=== PATIENT | male | born 1935 ===

== ENCOUNTER 2018-11-02 08:51 | Emergency (ER) | payer MEDICARE, MEDICAID ==
[2018-11-02 08:57] VITALS: BMI 32.1
[2018-11-02 08:58] VITALS: O2SAT 100
--- NOTE | 2018-11-02 09:19 | ED PDOC ---
Upper Extremity Pain/Injury Time Seen by Provider: 11/02/18 09:05 Chief Complaint (Provider): Upper Extremity Pain/Injury History Per: Patient History/Exam Limitations: no limitations Onset/Duration Of Symptoms: Days (x3) Current Symptoms Are (Timing): Still Present Additional Complaint(s): 83 y/o male with a PMHx of HTN presents to the ED for evaluation of upper extremity pain, onset three days ago. Patient reports of experiencing redness, swelling and cracking of the digits to both hands for the past three days. Patient notes of difficulty extending and flexing fingers. Otherwise, patient denies injury and fever. PMD: Gagandeep Mace Past Medical History Reviewed: Historical Data, Nursing Documentation, Vital Signs Vital Signs: Last Vital Signs Temp 97.7 F 11/02/18 08:57 Pulse 108 H 11/02/18 08:57 Resp 20 11/02/18 08:57 BP 143/85 11/02/18 08:57 Pulse Ox 100 11/02/18 08:57 - Medical History PMH: HTN - Surgical History Surgical History: No Surg Hx - Family History Family History: States: Unknown Family Hx - Social History Current smoker - smoking cessation education provided: No Alcohol: None Drugs: Denies - Home Medications Home Medications: Ambulatory Orders Medication Instructions Recorded Acetaminophen with Codeine 1 tab PO Q6H PRN #10 tab 02/15/15 [Tylenol with Codeine No. 3 300 mg-30 mg] Unknown 02/15/15 Naproxen [Naprosyn] 500 mg PO Q12H #20 tab 11/02/18 - Allergies Allergies/Adverse Reactions: Allergies Allergy/AdvReac Type Severity Reaction Status Date / Time No Known Allergies Allergy Verified 07/05/16 14:01 Review of Systems ROS Statement: Except As Marked, All Systems Reviewed And Found Negative Constitutional: Negative for: Fever Musculoskeletal: Positive for: Hand Pain Physical Exam - Reviewed Nursing Documentation Reviewed: Yes Vital Signs Reviewed: Yes - Physical Exam Appears: Positive for: No Acute Distress Extremity: Positive for: Swelling, Other (erythema with cracking of dorsal surface of the DIP joints of the 2nd through 5th digits. ). Negative for: N ormal ROM (ROM limited by swelling), Deformity - Laboratory Results Result Diagrams: 11/02/18 09:37 11/02/18 09:37 - ECG O2 Sat by Pulse Oximetry: 100 (RA) Pulse Ox Interpretation: Normal Medical Decision Making Medical Decision Making: Time: 910 A/P: Will obtain Sedimentation rate as this appears to be collagen vascular disease -- Will obtain XRs and refer to rheumatology -- CMP -- CBC with Differentials -- Erythrocyte Sedimentation Rate -- Hand 3 Views BI XR -- Cassie IFA Scr w/REFL Titer -- Rheumatoid Factor Scribe Attestation: Documented by Nathalie Epps, acting as a scribe Brad Jessica MD. Provider Scribe Attestation: All medical record entries made by the Scribe were at my direction and personally dictated by me. I have reviewed the chart and agree that the record accurately reflects my personal performance of the history, physical exam, medical decision making, and the department course for this patient. I have also personally directed, reviewed, and agree with the discharge instructions and disposition. Disposition - Clinical Impression Clinical Impression: Arthritis, Collagen vascular disease - Patient ED Disposition Is Patient to be Admitted: No - Disposition Referrals: Jose Hair MD [Staff Provider] - Disposition: Routine/Home Disposition Time: 10:29 Condition: FAIR Prescriptions: Naproxen [Naprosyn] 500 mg PO Q12H #20 tab Instructions: Osteoarthritis, Rheumatoid Arthritis Print Language: AMHARIC
[2018-11-02 09:54] LABS: BASO % 0.5 % (0.0-2.0); EOS # 0.1 K/uL (0.0-0.7); EOS % 1.7 % (0.0-4.0); HEMOGLOBIN 13.3 g/dL (12.0-18.0); LYMPH # 1.8 K/uL (1.0-4.3); LYMPH % 44.4 % (20.0-40.0); MEAN CELL VOLUME 90.3 fl (80.0-94.0); MEAN CORPUSCULAR HGB CONC 33.2 g/dL (33.0-37.0); MEAN PLATELET VOLUME 8.6 fl (7.2-11.7); MONO # 0.4 K/uL (0.0-0.8); MONO % 9.9 % (0.0-10.0); NEUT # 1.8 K/uL (1.8-7.0); NEUT % 43.5 % (50.0-75.0); NRBC % 0.4 % (0.0-0.0); RBC 4.43 Mil/uL (4.40-5.90); RED CELL DISTRIBUTION WIDTH 12.8 % (11.5-14.5); WHITE BLOOD COUNT 4.1 K/uL (4.8-10.8)
[2018-11-02 10:04] LABS: ALB/GLOB RATIO 1.2 (1.0-2.1); ALBUMIN 4.2 g/dL (3.5-5.0); ALT/SGPT 28 U/L (21-72); AST/SGOT 30 U/L (17-59); BLOOD UREA NITROGEN 20 mg/dl (9-20); CALCIUM 9.6 mg/dL (8.4-10.2); GFR NON-AFRICAN AMERICAN > 60
--- NOTE | 2018-11-02 10:36 | RAD ---
PROCEDURE: Bilateral hand radiographs. HISTORY: swelling COMPARISON: None. FINDINGS: BONES: Right Hand: Three views of the right hand and left hand were performed. No fracture is seen. No lytic process is noted. Mild degenerative changes are identified. No erosions are seen. Visualized carpal bones are intact. Distal radius and ulna are unremarkable bilaterally. Left Hand: See above. JOINTS: Right Hand: Mild degenerative changes. Left Hand: Mild degenerative changes. SOFT TISSUES: Right Hand: No significant soft tissue swelling. Left Hand: No significant soft tissue swelling. OTHER FINDINGS: None. IMPRESSION: No fractures of the right or left hand. Mild degenerative changes.
[2018-11-02 11:04] VITALS: BP 138/70; PULSE 88; RESP 18; TEMP 98
== END 2018-11-02 11:03 | disposition home or self-care (01) ==
LOC: H.ER 08:51
DX: M06.9 Rheumatoid arthritis, unspecified (principal); I10 Essential (primary) hypertension; I99.8 Other disorder of circulatory system